=== PATIENT | female | born 1940 | race Caucasian/White ===

== ENCOUNTER 2024-02-08 14:54 | Emergency (ER) | payer OTHER, BC ==
[2024-02-08 15:26] VITALS: BP 165/60; PULSE 84; RESP 20; TEMP 98.2; BMI 22.4
[2024-02-08] MEDS ORDERED: ACETAMINOPHEN INJECTION 100 ML IVPB ONE (16:08)
[2024-02-08] MEDS ORDERED: FAMOTIDINE 20 MG/50 ML IVPB 20 MG/50 ML MG IVPB ONE (16:08)
[2024-02-08] MEDS: ACETAMINOPHEN 1000 MG/100 ML BAG IVPB ONE (16:30)
[2024-02-08 16:36] LABS: HEMATOCRIT 40.9 % (32.4-45.2); HEMOGLOBIN 13.2 G/dL (10.7-15.3); MCH 31.2 pg (25.7-33.7); MCHC 32.2 g/dl (32.0-36.0); MEAN CELL VOLUME 96.6 fl (80-96); MEAN PLT VOLUME 7.6 fl (7.5-11.1); PLATELET COUNT 160.8 10^3/uL (134-434); RBC 4.23 10^6/uL (3.60-5.2); RDW 14.6 % (11.6-15.6); WHITE BLOOD COUNT 9.1 10^3/uL (4.0-10.8)
[2024-02-08 16:41] LABS: INR 1.07 (0.83-1.09); PROTHROMBIN TIME (PATIENT) 12.2 SEC (9.7-13.0)
[2024-02-08 16:44] LABS: ACTIVATED PTT 29.3 SECONDS (25.2-36.5)
[2024-02-08] MEDS: FAMOTIDINE 20 MG/50 ML IVPB 20 MG/50 ML MG IVPB ONE (16:45)
[2024-02-08 16:51] LABS: ALBUMIN 3.9 g/dl (3.4-5.0); BILIRUBIN,TOTAL 0.9 mg/dl (0.2-1); CALCIUM 9.1 mg/dl (8.5-10.1); CREATININE 0.4 mg/dl (0.6-1.3); POTASSIUM 3.8 mmol/L (3.5-5.1); TOT PROT 6.5 g/dl (6.4-8.2)
[2024-02-08 17:11] LABS: PLATELET ESTIMATE ADEQUATE
== END 2024-02-08 19:40 | disposition home or self-care (01) ==
LOC: FER 14:54
PROC: 3E033GC Introduction of Other Therapeutic Substance into Peripheral Vein, Percutaneous Approach (ICD-10-PCS; principal; 2024-02-08)
PROC: 3E033NZ Introduction of Analgesics, Hypnotics, Sedatives into Peripheral Vein, Percutaneous Approach (ICD-10-PCS; 2024-02-08)
DX: R10.12 Left upper quadrant pain (principal); Z20.822 Contact with and (suspected) exposure to COVID-19
CPT/HCPCS: 0241U-QW; 36415; 71045-TC-FY; 74177-TC; 80053; 81003; 83690; 84484; 85027; 85610; 85730; 87086; 93005; 96365; 96375; 99285-25; J0131; Q9967

== ENCOUNTER 2024-02-10 19:32 | Emergency (ER) | payer OTHER, BC ==
[2024-02-10 19:43] VITALS: BP 161/84; PULSE 79; RESP 19; TEMP 97.7; BMI 21.9
[2024-02-10] MEDS ORDERED: ACETAMINOPHEN INJECTION 100 ML IVPB ONE (20:15)
[2024-02-10 20:25] LABS: HEMATOCRIT 39.1 % (32.4-45.2); HEMOGLOBIN 12.7 G/dL (10.7-15.3); MCH 31.5 pg (25.7-33.7); MCHC 32.5 g/dl (32.0-36.0); MEAN CELL VOLUME 96.8 fl (80-96); MEAN PLT VOLUME 7.8 fl (7.5-11.1); PLATELET COUNT 224.5 10^3/uL (134-434); RBC 4.04 10^6/uL (3.60-5.2); RDW 14.6 % (11.6-15.6); WHITE BLOOD COUNT 8.1 10^3/uL (4.0-10.8)
[2024-02-10 20:42] LABS: ALBUMIN 3.8 g/dl (3.4-5.0); BILIRUBIN,TOTAL 0.4 mg/dl (0.2-1); CALCIUM 9.1 mg/dl (8.5-10.1); CREATININE 0.6 mg/dl (0.6-1.3); POTASSIUM 4.1 mmol/L (3.5-5.1); TOT PROT 6.8 g/dl (6.4-8.2)
[2024-02-10] MEDS: ACETAMINOPHEN 1000 MG/100 ML BAG IVPB ONE (20:57)
== END 2024-02-10 22:37 | disposition home or self-care (01) ==
LOC: FER 19:32
PROC: 3E033NZ Introduction of Analgesics, Hypnotics, Sedatives into Peripheral Vein, Percutaneous Approach (ICD-10-PCS; principal; 2024-02-10)
DX: R10.12 Left upper quadrant pain (principal); R07.89 Other chest pain
CPT/HCPCS: 36415; 71045-TC-FY; 71250-TC; 72128-TC; 80053; 81003; 82550; 84484; 85027; 93005; 99285-25; J0131

== ENCOUNTER 2025-04-04 13:49 | Emergency (ER) | payer OTHER, BC ==
[2025-04-04 13:57] VITALS: BP 117/63; PULSE 82; RESP 16; TEMP 98.1; BMI 22.4
[2025-04-04 15:21] LABS: ABSOLUTE IMMATURE GRANULOCYTES 0.03 x10^3/uL (0.0-0.031); BASOPHILS # 0.06 x10^3/uL (0.01-0.08); EOSINOPHIL % 7.0 % (0.7-5.8); EOSINOPHILS # 0.67 x10^3/uL (0.04-0.36); MCHC 31.8 g/dl (32.2-35.5); MEAN CELL VOLUME 96.4 fl (79.4-94.8); MEAN PLT VOLUME 9.1 fl (9.4-12.3); MONOCYTE # 0.96 x10^3/uL (0.24-0.86); MONOCYTE % 10.0 % (4.7-12.5); RDW 13.6 % (12.5-17.0)
[2025-04-04 15:44] LABS: GLUCOSE,RANDOM 89.0 mg/dL (74-106); TOT PROT 7.2 g/dl (6.4-8.2)
[2025-04-04 15:45] LABS: CO2 29.0 mmol/L (21-32)
[2025-04-04 15:47] LABS: ALK PHOS 94.0 U/L (40-150)
[2025-04-04 15:49] LABS: SGOT/AST 19.0 U/L (5-34); SGPT/ALT 13.0 U/L (0-55)
[2025-04-04 15:50] LABS: CREATININE 0.47 mg/dL (0.55-1.3)
[2025-04-04] MEDS ORDERED: DALBAVANCIN HCL 500 MG VIAL (RESTRICTED TO ID ONLY) IVPB ONE (16:11)
[2025-04-04] MEDS ORDERED: SILVER SULFADIAZINE 1% TOP CREAM 50 GM JAR TP ONE (16:24)
[2025-04-04] MEDS: SILVER SULFADIAZINE 1% TOP CREAM 50 GM JAR TP ONE (16:25)
[2025-04-04] MEDS ORDERED: NAPROXEN 500 MG TABLET ONE (16:29)
[2025-04-04] MEDS: DALBAVANCIN HCL 1,500 MG in DEXTROSE 5%-WATER - 500 ML IVPB ONE (16:30)
[2025-04-04] MEDS: NAPROXEN 500 MG TABLET PO ONE (17:13)
[2025-04-04] MEDS: NAPROXEN 375 MG TABLET PO ONE (17:14)
== END 2025-04-04 18:27 | disposition home or self-care (01) ==
LOC: JER 13:49
DX: L03.116 Cellulitis of left lower limb (principal); M79.662 Pain in left lower leg
CPT/HCPCS: 36415; 76882-TC-LT; 80053; 85025; 86803; 93971-TC-RT; 96365; 99285-25; J0875